=== PATIENT | female | born 1930 | race African-American/Black ===

== ENCOUNTER 2020-06-02 03:27 | Inpatient (IN) | payer OTHER ==
[~2020-06-02] VITALS: Ht 162.6 cm; Wt 50.0 kg
[2020-06-02 05:01] LABS: BASOPHILS % 0.6 % (0.0-2.0); EOSINOPHILS % 0.4 % (0.0-5.0); HEMATOCRIT. 28.4 % (36.0-48.0); HEMOGLOBIN. 8.5 g/dL (12.0-16.0); LYMPHOCYTES % 18.3 % (20.0-50.0); MEAN CORPUSCULAR HEMOGLOBIN 17.6 pg (28.0-32.0); MEAN CORPUSCULAR VOLUME 59.1 fL (81.0-99.0); MEAN PLATELET VOLUME 8.6 fl (7.4-10.4); MONOCYTES % 10.3 % (2.0-8.0); NEUTROPHILS % 70.4 % (40.0-76.0); PLATELET 415 x1000/uL (130-400); RED BLOOD CELL COUNT 4.81 mill/uL (4.2-5.4); RED CELL DISTRIBUTION WIDTH 20.8 % (11.6-14.6)
[2020-06-02 05:05] LABS: CHLORIDE 107 mEq/L (98-107)
[2020-06-02 06:04] LABS: PLATELET ESTIMATE SLIGHTLY INCREASED
[2020-06-02] MEDS ORDERED: ONDANSETRON HCL 4MG/2ML INJ IV PRN (09:15)
[2020-06-02] MEDS ORDERED: ACETAMINOPHEN 325MG TABLET PO PRN (09:15)
[2020-06-02] MEDS ORDERED: DIPHENHYDRAMINE 50MG/ML VIAL IV PRN (09:15)
[2020-06-02] MEDS ORDERED: IPRATROPIUM/ALBUTEROL 0.5-3(2.5)MG/3ML NEB HHN PRN (09:15)
[2020-06-02] MEDS ORDERED: CLONIDINE 0.1MG TABLET PO PRN (09:15)
[2020-06-02] MEDS ORDERED: POTASSIUM CHLORIDE INJ 40 MEQ in DEXT 5% WATER 250 ML IV NR (09:30)
[2020-06-02 09:34] LABS: PHOSPHORUS 2.7 mg/dL (2.5-4.9)
[2020-06-02] MEDS: RISPERIDONE 0.5MG TABLET PO SCH (09:47)
[2020-06-02] MEDS ORDERED: CEFTRIAXONE 1 G PREMIX 50 ML IV SCH (10:00)
[2020-06-02 13:29] VITALS: BP 151/86
[2020-06-02] MEDS ORDERED: ATOR20TA MT (14:32)
[2020-06-02 14:35] VITALS: BP 151/86
[2020-06-02 18:32] LABS: CREATINE KINASE 155 IU/L (26-192)
[2020-06-02 18:33] LABS: CREATINE KINASE MB FRACTION < 1.0 ng/mL (0.5-3.6)
[2020-06-02 20:00] VITALS: BP 107/66
[2020-06-02] MEDS: ATORVASTATIN CALCIUM 20MG TABLET PO SCH (22:15)
[2020-06-03] VITALS: BP 150/71
[2020-06-03 00:07] LABS: CREATINE KINASE 143 IU/L (26-192)
[2020-06-03 00:08] LABS: CREATINE KINASE MB FRACTION < 1.0 ng/mL (0.5-3.6)
[2020-06-03 04:00] VITALS: BP 163/74
[2020-06-03 07:24] LABS: BASOPHILS % 1.2 % (0.0-2.0); EOSINOPHILS % 1.5 % (0.0-5.0); HEMATOCRIT. 26.3 % (36.0-48.0); LYMPHOCYTES % 18.9 % (20.0-50.0); MEAN CORPUSCULAR HEMOGLOBIN 17.7 pg (28.0-32.0); MEAN CORPUSCULAR VOLUME 58.4 fL (81.0-99.0); MEAN PLATELET VOLUME 8.7 fl (7.4-10.4); MONOCYTES % 7.3 % (2.0-8.0); NEUTROPHILS % 71.1 % (40.0-76.0); PLATELET 399 x1000/uL (130-400); RED BLOOD CELL COUNT 4.51 mill/uL (4.2-5.4); RED CELL DISTRIBUTION WIDTH 21.8 % (11.6-14.6)
[2020-06-03 08:00] VITALS: BP 149/69
[2020-06-03 08:15] LABS: CHLORIDE 105 mEq/L (98-107)
[2020-06-03 08:33] LABS: LDL CHOLESTEROL 79 mg/dL (5-100)
[2020-06-03 08:34] LABS: HDL CHOLESTEROL 49 mg/dL (40-59)
[2020-06-03] MEDS: RISPERIDONE 0.5MG TABLET PO SCH (09:03)
[2020-06-03] MEDS ORDERED: CEFTRIAXONE 1,000 MG in DEXTROSE 5% WATER 50 ML IV SCH (10:00)
[2020-06-03 12:00] VITALS: BP 119/58
[2020-06-03 16:00] VITALS: BP 140/80
[2020-06-03 17:58] LABS: CLARITY URINE CLEAR (CLEAR); COLOR URINE YELLOW (YELLOW); KETONES URINE 1+ (NEGATIVE); LEUKOCYTE ESTERASE URINE NEGATIVE (NEGATIVE); NITRITE URINE NEGATIVE (NEGATIVE); OCCULT BLOOD URINE 2+ (NEGATIVE); PH URINE 5.5 (4.5-8.0); PROTEIN URINE TRACE (NEGATIVE); SPECIFIC GRAVITY URINE 1.019 (1.005-1.030); UROBILINOGEN URINE 0.2 E.U./dL (0.2-1.0)
[2020-06-03 19:30] VITALS: BP 121/101
[2020-06-03] MEDS: ATORVASTATIN CALCIUM 20MG TABLET PO SCH (20:03)
== END 2020-06-03 20:50 | disposition short-term general hospital (02) | DRG 641 ==
LOC: ER 03:27 → 8WST 06:34 → EDBEDREQ 06:38 → EDBEDREQTM 06:38 → ENRESERV 12:34
PROVIDERS: ADMIT Internal Medicine; ATTEND Internal Medicine
DX: E87.6 Hypokalemia (principal); Z68.1 Body mass index [BMI] 19.9 or less, adult; D50.9 Iron deficiency anemia, unspecified; F03.90 Unspecified dementia, unspecified severity, without behavioral disturbance, psychotic disturbance, mood disturbance, and anxiety; R62.7 Adult failure to thrive; I10 Essential (primary) hypertension; W18.39XA Other fall on same level, initial encounter; E78.5 Hyperlipidemia, unspecified; Z78.1 Physical restraint status; Y93.89 Activity, other specified; Y92.89 Other specified places as the place of occurrence of the external cause; Y99.8 Other external cause status
CPT/HCPCS: 36415; 71045; 80053; 80061; 81003; 82550; 82553; 83605; 83735; 83880; 84100; 84443; 84484; 85025; 93005; 93970; 97162; 97166; 99285; J0696; J2405; J3480; J7060